=== PATIENT | female | born 1995 | race Caucasian/White ===

== ENCOUNTER 2021-09-17 15:09 | Outpatient (CLI) | payer SELFPAY | END 2021-09-17 15:10 | disposition home or self-care (01) | LOC: AMB 09-30 18:14 | PROVIDERS: Visit Provider Family Medicine | DX: R07.89 Other chest pain (principal); F41.9 Anxiety disorder, unspecified; T59.811A Toxic effect of smoke, accidental (unintentional), initial encounter; Y92.9 Unspecified place or not applicable | CPT/HCPCS: A0998 ==